=== PATIENT | male | born 1985 | race African-American/Black ===

== ENCOUNTER 2024-04-07 11:30 | Emergency (ER) | payer MEDICAID, OTHER ==
[~2024-04-07] VITALS: Ht 175.3 cm; Wt 75.7 kg
[2024-04-07 12:21] LABS: Urine Bacteria None Seen /hpf (None Seen)
[2024-04-07 12:48] LABS: Urine Blood Negative /uL (Negative); Urine Clarity Clear (Clear); Urine Color Yellow (Yellow); Urine Mucus FEW (None Seen); Urine Protein, UAD TRACE (Negative); Urine Specific Gravity 1.028 (1.001-1.035); Urine Squamous Epithelial Cell None Seen /hpf (<5); Urine Urobilinogen 4 mg/dL (Negative); Urine WBC 1 /HPF (0-3)
--- NOTE | 2024-04-07 13:18 | ED.PDOC ---
History of Present Illness HPI Comments 39 y.o male presents to the ED for multiple complaints that include congestion, nasal discharge with red blood mixed with mucus, cough with bloody sputum, headache, abdominal discomfort radiating to his right flank x this morning. Patient reports dark red blood with clear discharge from nasal region this morni ng described as mild output and only one episode with no blood clots noted. Patient reports daughter at home is currently sick with flu like symptoms but his concern was the blood output. Patient denies any nausea, vomiting, fever, chills, urinary symptoms. No other bleeding reported. He denies any medical, surgical history or allergies. Chief Complaint: Abdominal Pain Time Seen by MD: 13:11 Primary Care Provider: none Reviewed Notes: Nurses Notes, Medications, Allergies Allergies: Coded Allergies: NO KNOWN ALLERGIES (Unverified , 04/07/24) Information Source: Patient Mode of Arrival: Ambulatory Severity: Moderate Timing: Hours Duration: Since onset Past Medical History PAST MEDICAL HISTORY: Denies Surgical History: Denies all surgeries Family History Family History: Reviewed,noncontributory to illness Social History Smoker: Cigarettes Alcohol: Denies ETOH Use Drugs: Marijuana Lives In: Home Constitutional: denies: chills, diaphoresis, fatigue, fever, malaise, sweats, weakness, others EENTM: reports: nasal discharge, nose congestion; denies: blurred vision, double vision, ear bleeding, ear discharge, ear drainage, ear pain, ear ringing, eye pain, eye redness, hearing loss, mouth pain, mouth swelling, nose bleeding, nose pain, photophobia, tearing, throat pain, throat swelling, voice changes, others Respiratory: reports: cough, hemoptysis; denies: orthopnea, SOB at rest, shortness of breath, SOB with excertion, stridor, wheezing, others Cardiovascular: denies: chest pain, dizzy spells, diaphoresis, Dyspnea on exertion, edema, irregular heart beat, left arm pain, lightheadedness, palpitations, PND, syncope, others Gastrointestinal: reports: abdominal pain; denies: abdomen distended, blood streaked bowels, constipated, diarrhea, dysphagia, difficulty swallowing, hematemesis, melena, nausea, poor appetite, poor fluid intake, rectal bleeding, rectal pain, vomiting, others Genitourinary: denies: burning, dysuria, flank pain, frequency, hematuria, incontinence, penile discharge, penile sore, pain, testicle pain, testicle swelling, urgency, others Neurological: reports: headache; denies: dizziness, fainting, left sided numbness, left sided weakness, numbness, paresthesia, pre-existing deficit, right sided numbness, right sided weakness, seizure, speech problems, tingling, tremors, weakness, others Musculoskeletal: denies: back pain, gout, joint pain, joint swelling, muscle pain, muscle stiffness, neck pain, others Integumetry: denies: bruises, change in color, change in hair/nails, dryness, laceration, lesions, lumps, rash, wounds, others Allergic/Immunocompromised: denies: Difficulty Healing, Frequent Infections, Hives, Itching, others Hematologic/Lymphatic: denies: anemia, blood clots, easy bleeding, easy bruising, swollen glands, others Endocrine: denies: excessive hunger, excessive sweating, excessive thirst, excessive urination, flushing, intolerance to cold, intolerance to heat, unexplained weight gain, unexplained weight loss, others Psychiatric: denies: anxiety, bipolar disorder, depression, hopeless, panic disorder, schizophrenia, sleepless, suicidal, others All Other Systems: Reviewed and Negative Physical Exam General Appearance: No Apparent Distress HEENT: Other (Pupils symmetric, no facial asymmetry, no epistaxis, moist mucous membranes) Neck: Full Range of Motion, Normal Inspection Respiratory: Lungs Clear, No Accessory Muscle Use, No Respiratory Distress, Normal Breath Sounds Cardiovascular: No Edema, No JVD, Regular Rate/Rhythm Breast Exam: Deferred Gastrointestinal: Non Tender, Soft Genitalia: Deferred Pelvic: Deferred Rectal: Deferred Extremities: Normal inspection, Normal range of motion, Non-tender, No pedal edema Neurologic: Alert (Oriented x4), Normal Affect, Normal Mood, Other (Ambulatory without difficulty. No gross focal deficit.) Cerebellar Function: NOT DONE Reflexes: NOT DONE Skin: Dry, Normal Color, Warm Lymphatic: NOT DONE Was a procedure done? Was a procedure done?: No Differential Dx Considerations may include: Sinusitis, URI, Bronchitis, viral syndrome, PNA, Gastroenteritis, coagulopathy, among others X-Ray, Labs, Meds, VS Vital Signs Date Time Temp Pulse Resp B/P (MAP) Pulse Ox O2 Delivery O2 Flow Rate FiO2 04/07/24 11:45 99.2 83 19 121/80 (94) 98 Lab Test 04/07/24 12:18 Range/Units Urine Color Yellow Yellow Urine Clarity Clear Clear Urine pH 6.0 5.0-9.0 Urine Specific Bruno 1.028 1.001-1.035 Urine Protein Trace H Negative Urine Ketones 1+ H Negative Urine Blood Negative Negative /uL Urine Nitrite Negative Negative Urine Bilirubin Negative Negative Urine Urobilinogen 4 H Negative mg/dL Urine Leukocyte Esterase Trace Negative /uL Urine RBC 1 0 - 3 /hpf Urine Microscopic WBC 1 0-3 /HPF Urine Squamous Epithelial Cells None seen <5 /hpf Urine Bacteria None seen None Seen /hpf Urine Mucus Few None Seen Urine Glucose Normal Normal mg/dL [place] [id number] Ph: [phone] DIAGNOSTIC IMAGING Diagnostic Imaging Report : [id number] Signed PATIENT: SUKWHINDER PENNY ACCT: [id number] UNIT: [id number] : 1985 LOC: ER ROOM / BED: / AGE / SEX: 39 / M ADM STATUS: REG ER SERVICE [id number] ORDERING PHYSICIAN: TAY CUNNINGHAM MD PROCEDURE(s): CXRP - CHEST PORTABLE REASON: hemoptysis ORDER NUMBER(s): [id number], ACCESSION NUMBER(s): [id number] AP portable chest HISTORY: hemoptysis Comparison: None FINDINGS: Heart size normal. No infiltrates or effusions. Scoliosis of the thoracic spine. IMPRESSION: 1. No acute cardiopulmonary pathology ATED BY: LEXA CAROLINA MD DICTATED DATE/TIME: 04/07/241339 SIGNED BY: LEXA CAROLINA MD SIGNED DATE/TIME: 04/07/24 134 CC: X-Ray, Labs, Meds, VS Comment 39-year-old male with no significant past medical history complaining of productive cough, nasal congestion, hemoptysis and bloody nasal mucous, associated with upper abdominal discomfort Vitals unremarkable Exam unremarkable Chest x-ray no acute disease UA unremarkable, influenza and COVID were ordered but not collected On re-evaluation, patient is resting comfortably with stable vitals. No respiratory distress. No acute bleeding noted. Patient stated he did not want to wait for influenza and COVID results. He appears well, and does not have abnormal vital signs. I am comfortable discharging the patient with a prescription for antibiotics to cover possible bacterial sinusitis and/or bronchitis, and close follow up with his primary physician. Rx Augmentin, Mucinex, Tylenol Time of 1ST Reevaluation: 14:03 Reevaluation 1ST: Unchanged Patient Education/Counseling: Diagnosis, Treatment, Prognosis Family Education/Counseling: No Family Present Departure 1 Departure Time of Disposition: 15:17 Impression: Primary Impression: Sinusitis Qualified Codes: J32.9 - Chronic sinusitis, unspecified Additional Impressions: Acute cough Hemoptysis Disposition: HOME / SELF CARE / HOMELESS Condition: Stable Additional Instructions: Your chest x-ray was normal. Your urine test was unremarkable. I have prescribed antibiotics to treat a possible sinus infection and/or bacterial respiratory infection, as well as a decongestant. Follow up with your primary doctor in 1-2 days. Return to ER for persistent or worsening symptoms. e-Prescriptions Acetaminophen (Tylenol Extra Strength) 500 Mg Tab 1000 MG PO Q6HP PRN, #30 TAB prn fever or pain Prov: TAY CUNNINGHAM MD 04/07/24 Guaifenesin (Mucinex) 600 Mg Tab 1 TAB PO BID PRN, #14 TAB prn congestion Prov: TAY CUNNINGHAM MD 04/07/24 Amoxicillin & Pot Clavulanate (AUGMENTIN TABLET) 875 Mg Tb 875 MG PO BID for 10 Days, #20 TAB Prov: TAY CUNNINGHAM MD 04/07/24 Discharged With: Self Critical Care Note Critical Care Time?: No Stability Stability form required: No I personally scribed for TAY CUNNINGHAM MD (JULIANA) on 04/07/24 at 13:18. Electronically submitted by Lacy Villatoro ([facility]). I personally scribed for TAY CUNNINGHAM MD (JULIANA) on 04/07/24 at 14:07. Electronically submitted by Lacy Villatoro ([facility]). I personally scribed for TAY CUNNINGHAM MD (MARIA ISABELVENUS) on 04/07/24 at 14:50. Electronically submitted by Lacy Villatoro ([facility]). TAY CUNNINGHAM MD Apr 07, 2024 13:18
--- NOTE | 2024-04-07 13:42 | DVH ---
AP portable chest HISTORY: hemoptysis Comparison: None FINDINGS: Heart size normal. No infiltrates or effusions. Scoliosis of the thoracic spine. IMPRESSION: 1. No acute cardiopulmonary pathology
[2024-04-07] MEDS ORDERED: GUAI600T78 PO (15:20)
[2024-04-07] MEDS ORDERED: AUG875T PO (15:20)
[2024-04-07] MEDS ORDERED: ACET-1304 PO (15:20)
[2024-04-07 16:25] VITALS: BP 128/88; PULSE 88; RESP 18; TEMP 98.9; O2SAT 98
== END 2024-04-07 16:27 | disposition home or self-care (01) ==
LOC: ER 11:30
DX: J32.9 Chronic sinusitis, unspecified (principal); R05.9 Cough, unspecified; R04.2 Hemoptysis; F17.210 Nicotine dependence, cigarettes, uncomplicated
CPT/HCPCS: 71045; 81001